=== PATIENT | male | born 1975 | race Caucasian/White ===

== ENCOUNTER → 2018-05-30 | Outpatient (CLI) | payer BC ==
--- NOTE | 2018-05-30 12:20 | Diagnostic Imaging Report ---
PROCEDURE: MRI of the left knee without contrast 05/30/2018. TECHNIQUE: Multiplanar, multisequence non contrast-enhanced MRI of the left lower extremity was accomplished. INDICATION: Left knee pain after surgery. Never completely recovered from surgery. Torn meniscus repair 03/02/2018. Left knee has given out on him multiple times. Lateral pain. Pain across the front of the knee just below the patella. COMPARISON: 02/17/2018 FINDINGS: The previously noted tear involving the posterior horn of the medial meniscus is once again seen. Diffuse high signal throughout the posterior horn is noted extending to the tibial surface. There is mild undersurface hyperintensity throughout the medial meniscal body which appears more extensive than on previous. The anterior horn is grossly unremarkable. The lateral meniscus is intact. The ACL and the PCL are intact. Extensor mechanism is normal in appearance. The MCL and the lateral collateral ligamentous complex unremarkable. There is mild irregularity of cartilage within the medial compartment. The cartilage in the lateral compartment is unremarkable. Patellofemoral cartilage within normal limits. Minimal joint fluid noted but no significant effusion is seen. Stranding within Hoffa's fat pad is seen and likely due to areas of scar formation since the previous surgery. The osseous structures appear unremarkable. IMPRESSION: 1. Diffuse tear involving the posterior horn and body of the medial meniscus with worsening findings along the inferior or undersurface portion of the medial meniscal body. 2. Lateral meniscus ligaments and tendons intact. 3. Incidental findings, as above, consistent with the known prior surgery. Dictated by: Dictated on workstation # [id number]
== END ==
LOC: RAD 08:34
PROVIDERS: ATTEND Nurse Practitioner Family
DX: S83.232A Complex tear of medial meniscus, current injury, left knee, initial encounter (principal); Z98.890 Other specified postprocedural states
CPT/HCPCS: 73721

== ENCOUNTER → 2020-02-22 | Outpatient (CLI) | payer BC ==
--- NOTE | 2020-02-22 15:49 | Diagnostic Imaging Report ---
PROCEDURE: MRI lumbar spine. TECHNIQUE: Multiplanar, multisequence MRI of the lumbar spine was performed without contrast. INDICATION: Low back pain. COMPARISON: No prior studies are available for comparison. FINDINGS: Curvature of the lumbar spine is normal. There is minimal retrolisthesis of L5 on S1. Vertebral body heights are maintained. Marrow signal intensity is unremarkable. No geographic marrow lesion or acute compression fracture is detected. There is loss of height and signal intensity through the disc at L5-S1 level, compatible with degenerative change. Remaining lumbar discs demonstrate normal height and hydration. The conus is unremarkable at the L1 level. T12-L1: Central canal and neuroforamina are widely patent. L1-L2: Central canal and neuroforamina are widely patent. L2-L3: Central canal and neuroforamina are patent. L3-L4: There is some minimal ligamentous thickening present. Central canal remains widely patent. Neuroforamina are patent. L4-L5: There are mild facet changes present. Central canal is widely patent. Mild bilateral neuroforaminal narrowing is seen. There is mild lateral recess narrowing present. L5-S1: There is broad-based disc bulging present. This indents the ventral thecal sac slightly asymmetric to the right paramidline location. There does appear to be some indentation upon the right S1 nerve root. Lateral recesses are significantly narrowed bilaterally, particularly on the right. Central canal remains patent. There is [id number] bilateral neuroforaminal narrowing. Paraspinous tissues are unremarkable. IMPRESSION: Lower lumbar spondylosis. There is lateral recess and neuroforaminal narrowing at L4-L5 and L5-S1 levels, as described. Broad-based disc bulging does appear to impinge upon the right S1 nerve root. Dictated by: Dictated on workstation # [id number]
== END ==
LOC: RAD 14:52
PROVIDERS: ATTEND Nurse Practitioner Community Health
DX: M47.816 Spondylosis without myelopathy or radiculopathy, lumbar region (principal); M48.07 Spinal stenosis, lumbosacral region; M51.17 Intervertebral disc disorders with radiculopathy, lumbosacral region
CPT/HCPCS: 72148

== ENCOUNTER → 2020-06-08 | Outpatient (CLI) | payer BC ==
--- NOTE | 2020-06-08 10:25 | Diagnostic Imaging Report ---
PROCEDURE: MR imaging cervical spine without contrast. TECHNIQUE: Multiplanar, multisequence MR imaging of the cervical spine was performed without contrast. INDICATION: Bilateral shoulder pain. There are no prior studies available for comparison. The reconstructed T2 parasagittal images show the vertebral body heights and alignment to be generally within normal limits. The intervertebral spaces are fairly well-maintained although there is desiccation of the discs at every level. The thecal sac is relatively generous. There is no evidence for a central stenosis at any level. However, there is narrowing of the neural foramen on the left at C3-C4 due to a disc osteophyte complex. There is no abnormal signal arising from the osseous structures to suggest bone edema or a fracture. There is no sign of a cord lesion either. There is no sign of a paraspinal mass. The expected carotid and vertebral flow voids are evident bilaterally. The left vertebral artery is dominant. IMPRESSION: 1. There is moderate degenerative disc disease throughout the cervical spine. While there is no high-grade central stenosis identified, there is neuroforaminal narrowing on the left at C3-4 due to a disc osteophyte complex. 2. There is no sign of an acute bony abnormality or of a cord lesion. Dictated by: Dictated on workstation # [id number]
== END ==
LOC: RAD 07:54
PROVIDERS: ATTEND Orthopaedic Surgery
DX: M47.22 Other spondylosis with radiculopathy, cervical region (principal); M48.02 Spinal stenosis, cervical region
CPT/HCPCS: 72141

== ENCOUNTER → 2020-08-03 | Outpatient (CLI) | payer BC ==
[~2020-08-03] VITALS: Ht 177.8 cm; Wt 90.9 kg
[~2020-08-03] MED LIST: GADOBUTROL 7.5 MMOL/7.5 ML (GADAVIST) VIAL IV ONE; IOHEXOL 300 MG/ML 50 ML (OMNIPAQUE 300) VIAL IV ONE
--- NOTE | 2020-08-03 14:42 | Diagnostic Imaging Report ---
INDICATION: Left shoulder pain. Patient brought to the procedure room and placed on table in the supine position. Skin of the left shoulder was prepped and draped in usual sterile fashion. A small amount of 1% lidocaine was utilized for local anesthesia. 22-gauge needle was advanced into the left shoulder at the rotator interval. 50 mL solution of iodinated contrast, normal saline and gadolinium was injected under fluoroscopic observation. 11 seconds of fluoroscopic time is utilized. Needle was removed and hemostasis was obtained. Patient tolerated procedure well was sent to MRI in satisfactory condition. IMPRESSION: Successful left shoulder injection of gadolinium contrast solution, using fluoroscopy. Dictated by: Dictated on workstation # [id number]
--- NOTE | 2020-08-03 15:38 | Diagnostic Imaging Report ---
PROCEDURE: MRI left joint upper extremity with contrast. TECHNIQUE: Multiplanar, multisequence contrast-enhanced MRI of the left upper extremity was accomplished. INDICATION: Chronic left shoulder pain. There are no prior exams available for comparison. The axial images do show a small area of altered signal within the anterior labrum. I suspect this represents a small tear. There is no other labral defect identified. The T1 fat-saturated coronal series shows a few small areas of altered signal within the rotator cuff. I suspect these are more likely due to tendinosis than to a tear. The supraspinous muscle is not retracted or bunched. There is mild hypertrophy of the acromioclavicular joint but there does not appear to be any significant narrowing of the outlet for the supraspinous muscle. The biceps tendon and the subscapularis tendon are intact. There is no abnormal signal arising from the osseous structures to suggest bone edema or a fracture. IMPRESSION: 1. There is a very small tear of the anterior labrum. The labrum is otherwise intact. 2. There is mild tendinosis of the rotator cuff but the rotator cuff appears to be intact. The supraspinous muscle is not retracted or bunched. 3. There is mild hypertrophy of the acromioclavicular joint but there is no significant narrowing of the outlet for the supraspinous muscle. 4. There is no acute bony abnormality appreciated. Dictated by: Dictated on workstation # [id number]
== END ==
LOC: RAD 14:15
PROVIDERS: ATTEND Nurse Practitioner Family
DX: S43.432A Superior glenoid labrum lesion of left shoulder, initial encounter (principal); X58.XXXA Exposure to other specified factors, initial encounter
CPT/HCPCS: 23350; 73040; 73222

== ENCOUNTER 2020-08-11 07:57 | Outpatient (RCR) | payer BC, OTHER | END 2020-09-28 09:47 | disposition home or self-care (01) | PROVIDERS: ATTEND Orthopaedic Surgery | DX: M50.10 Cervical disc disorder with radiculopathy, unspecified cervical region (principal); M25.311 Other instability, right shoulder; M75.42 Impingement syndrome of left shoulder ==

== ENCOUNTER → 2020-08-16 | Outpatient (CLI) | payer BC | LOC: LABNPT 04:49 | PROVIDERS: ATTEND Orthopaedic Surgery | DX: Z01.812 Encounter for preprocedural laboratory examination (principal); Z20.822 Contact with and (suspected) exposure to COVID-19 | CPT/HCPCS: 87635 ==

== ENCOUNTER 2020-11-30 08:30 | Outpatient (RCR) | payer BC | END 2020-12-28 | disposition home or self-care (01) | PROVIDERS: ATTEND Nurse Practitioner Family | DX: M75.42 Impingement syndrome of left shoulder (principal); Z98.890 Other specified postprocedural states ==

== ENCOUNTER → 2021-05-18 | Outpatient (CLI) | payer BC, OTHER | LOC: LABNPT 06:43 | PROVIDERS: ATTEND Orthopaedic Surgery | DX: Z01.812 Encounter for preprocedural laboratory examination (principal); Z20.822 Contact with and (suspected) exposure to COVID-19 | CPT/HCPCS: 87635 ==

== ENCOUNTER → 2021-07-30 | Outpatient (RCR) | payer BC | END | disposition home or self-care (01) | PROVIDERS: ATTEND Nurse Practitioner Family | DX: M25.511 Pain in right shoulder (principal); Z98.890 Other specified postprocedural states ==

== ENCOUNTER 2021-08-10 08:00 | Outpatient (RCR) | payer BC | END 2021-08-10 08:45 | disposition home or self-care (01) | PROVIDERS: ATTEND Nurse Practitioner Family | DX: M25.511 Pain in right shoulder (principal); Z98.890 Other specified postprocedural states; Z96.611 Presence of right artificial shoulder joint ==